=== PATIENT | male | born 1995 | race African-American/Black ===

== ENCOUNTER 2021-12-01 19:31 | Inpatient (IN) ==
[2021-12-01 20:08] LABS: Basophils % 0.4 %; Eosinophils # 0.1 K/mcL (0.0-0.6); Eosinophils % 0.9 %; Hematocrit 50.1 % (37.5-50.1); Hemoglobin 16.7 g/dL (12.9-16.9); Immature Granulocytes % 0.1 % (0-4); Lymphocytes # 2.6 K/mcL (0.6-4.6); Lymphocytes % 37.8 %; Mean Corpuscular HGB Conc 33.3 g/dL (31.6-35.5); Mean Corpuscular Hemoglobin 29.2 pg (28.0-33.3); Mean Corpuscular Volume 87.7 fL (83.0-100.0); Mean Platelet Volume 10.7 fL (9.4-12.4); Monocytes # 0.8 K/mcL (0.0-1.3); Monocytes % 11.8 %; Neutrophils # 3.4 K/mcL (1.6-8.9); Platelet Count 235 K/mcL (140-400); Red Blood Count 5.71 M/mcL (4.19-5.50); Red Cell Distribution Width 13.3 % (11.5-14.5); White Blood Count 6.9 K/mcL (4.3-11.1)
[2021-12-01 20:11] LABS: Bilirubin,Urine Negative (Negative); Blood,Urine Negative (Negative); Clarity,Urine Clear (Clear); Color,Urine Yellow (Yellow); Glucose,Urine (UA) Normal (Normal); Ketones,Urine Trace mg/dL (Negative); Leukocyte Esterase,Urine Trace (Negative); Mucus,Urine Many per lpf (None-Few); Nitrite,Urine Negative (Negative); Protein,Urine 70 mg/dL (Neg-Trace); Specific Gravity,Urine > 1.030 (1.010-1.025); Squamous Epithelial Cell,Urine Few per hpf (None-Few); Urobilinogen,Urine >=8.0 mg/dL (Normal)
[2021-12-01 20:22] LABS: Amphetamine Screen,Urine Negative ng/mL (Cutoff=1000); Barbiturate Screen,Urine Negative ng/mL (Cutoff=200); Benzodiazepines Screen,Urine Negative ng/mL (Cutoff=200); Cannabinoid Screen,Urine Positive ng/mL (Cutoff = 50); Cocaine Screen,Urine Negative ng/mL (Cutoff= 300); Opiate Screen,Urine Negative ng/mL (Cutoff=300); Phencyclidine Screen,Urine Negative ng/mL (Cutoff=25)
[2021-12-01 20:28] LABS: Acetaminophen < 10 mcg/mL (10-20); BUN/Creatinine Ratio 15 (6-26); Blood Urea Nitrogen 15 mg/dL (6-20); Calcium 10.6 mg/dL (8.6-10.3); Carbon Dioxide 28 mEq/L (23-29); Chloride 99 mEq/L (98-107); Ethanol < 10 mg/dL (Less than 10); Glucose 111 mg/dL (70-105); Osmolality,Calculated 288 (280-300); Potassium 3.6 mEq/L (3.5-5.1); Salicylate < 2.5 mg/dL (15.0-30.0); Sodium 138 mEq/L (136-145); eGFR For African Americans > 60 (> 60); eGFR For Non-African Americans > 60 (> 60)
[2021-12-01 23:21] LABS: Influenza A PCR Negative (Negative); Influenza B PCR Negative (Negative); Resp. Syncytial Virus PCR Negative (Negative)
[2021-12-01 23:22] LABS: SARS-CoV-2 by PCR (In House) Negative (Negative)
[2021-12-01] MEDS ORDERED: Acetaminophen 325 MG TABLET PO PRN (23:35)
[2021-12-01] MEDS ORDERED: *HR* LORazepam 1 MG TABLET PO PRN (23:35)
[2021-12-01] MEDS ORDERED: hydrOXYzine pamoate 25 MG CAPSULE PO PRN (23:35)
[2021-12-01] MEDS ORDERED: *HR* LORazepam 2 MG/ML VIAL IM PRN (23:35)
[2021-12-01] MEDS ORDERED: Haloperidol Lactate 5 MG/ML VIAL IM PRN (23:35)
[2021-12-01] MEDS ORDERED: haloperidoL 5 MG TABLET PO PRN (23:35)
[2021-12-01] MEDS ORDERED: Nicotine 21 MG PATCH.TD24 TD SCH ×2 (23:45)
[2021-12-02] MEDS ORDERED: Mag Hydrox/Al Hydrox/Simeth 30 ML UDC PO PRN (09:41)
[2021-12-02] MEDS ORDERED: MOM Conc 10 ML UD.LIQ PO PRN (09:41)
[2021-12-02] MEDS: Nicotine 21 MG PATCH.TD24 TD SCH (11:37)
[2021-12-02] MEDS: Naltrexone HCl 50 MG TABLET PO SCH (11:37)
[2021-12-02] MEDS: traZODone 50 MG TABLET PO PRN (22:01)
[2021-12-03] MEDS: Nicotine 21 MG PATCH.TD24 TD SCH (08:34)
[2021-12-03] MEDS: Naltrexone HCl 50 MG TABLET PO SCH (08:34)
[2021-12-03] MEDS: traZODone 50 MG TABLET PO PRN (20:47)
[2021-12-04] MEDS: Nicotine 21 MG PATCH.TD24 TD SCH (08:48)
[2021-12-04] MEDS: Naltrexone HCl 50 MG TABLET PO SCH (08:48)
[2021-12-04 09:01] VITALS: BP 116/77; PULSE 91; TEMP 98.4; O2SAT 99
== END 2021-12-04 11:47 | disposition home or self-care (01) | DRG 885 ==
LOC: EMEROOARM 19:31 → 1ANU 23:40
PROVIDERS: ADMIT Psychiatry & Neurology Psychiatry; ATTEND Psychiatry & Neurology Psychiatry